=== PATIENT | female | born 1995 | race Caucasian/White ===

== ENCOUNTER 2017-06-19 15:51 | Emergency (ER) | payer MEDICAID | END 2017-06-19 17:05 | disposition left against medical advice (07) | LOC: ER 17:04 | DX: R10.2 Pelvic and perineal pain (principal); Z53.21 Procedure and treatment not carried out due to patient leaving prior to being seen by health care provider ==

== ENCOUNTER 2017-06-19 18:56 | Emergency (ER) | payer MEDICAID ==
[~2017-06-19] VITALS: Ht 152.4 cm; Wt 66.0 kg
[2017-06-19 20:20] VITALS: BP 115/76
[2017-06-19] MEDS ORDERED: CEFTRIAXONE SODIUM 250 MG/VIAL IM ONE (20:30)
[2017-06-19] MEDS ORDERED: AZITHROMYCIN 500 MG TABLET PO ONE (20:30)
== END 2017-06-19 21:59 | disposition home or self-care (01) ==
LOC: ER 21:50
DX: T74.21XA Adult sexual abuse, confirmed, initial encounter (principal); S39.848A Other specified injuries of external genitals, initial encounter; R10.2 Pelvic and perineal pain; Y07.499 Other family member, perpetrator of maltreatment and neglect; Y93.84 Activity, sleeping; Y92.9 Unspecified place or not applicable; F17.210 Nicotine dependence, cigarettes, uncomplicated
CPT/HCPCS: 99283

== ENCOUNTER 2018-05-22 20:03 | Emergency (ER) | payer MEDICAID | END 2018-05-22 21:23 | disposition left against medical advice (07) | LOC: ER 20:03 | DX: R68.89 Other general symptoms and signs (principal); Z53.21 Procedure and treatment not carried out due to patient leaving prior to being seen by health care provider ==

== ENCOUNTER 2018-09-29 15:24 | Emergency (ER) | payer MEDICAID ==
[~2018-09-29] VITALS: Ht 152.4 cm; Wt 70.0 kg
[2018-09-29] MEDS ORDERED: SODIUM CHLORIDE 0.9% 1,000 ML IV ONE (17:27)
[2018-09-29] MEDS ORDERED: ONDANSETRON HCL 4MG/2ML INJ IV ONE (17:30)
[2018-09-29 18:09] LABS: BASOPHILS % 0.7 % (0.0-2.0); HEMATOCRIT. 34.9 % (36.0-48.0); LYMPHOCYTES % 31.9 % (20.0-50.0); MEAN CORPUSCULAR HEMOGLOBIN 32.5 pg (28.0-32.0); MEAN CORPUSCULAR VOLUME 94.6 fL (81.0-99.0); MEAN PLATELET VOLUME 7.4 fl (7.4-10.4); NEUTROPHILS % 57.4 % (40.0-76.0); PLATELET 284 x1000/uL (130-400); RED BLOOD CELL COUNT 3.69 mill/uL (4.2-5.4); RED CELL DISTRIBUTION WIDTH 12.9 % (11.6-14.6)
[2018-09-29 18:13] LABS: CHLORIDE 109 mEq/L (98-107)
[2018-09-29 18:24] LABS: B-HCG QUANTITATIVE < 1 mIU/mL (<3)
[2018-09-29 20:32] LABS: CLARITY URINE CLOUDY (CLEAR); COLOR URINE ORANGE (YELLOW); KETONES URINE NEGATIVE (NEGATIVE); LEUKOCYTE ESTERASE URINE TRACE (NEGATIVE); NITRITE URINE POSITIVE (NEGATIVE); OCCULT BLOOD URINE 3+ (NEGATIVE); PROTEIN URINE 1+ (NEGATIVE); SPECIFIC GRAVITY URINE 1.025 (1.005-1.030)
[2018-09-29 20:50] VITALS: BP 105/57
== END 2018-09-29 20:54 | disposition home or self-care (01) ==
LOC: ER 15:24
DX: R11.0 Nausea (principal); N93.9 Abnormal uterine and vaginal bleeding, unspecified; R10.9 Unspecified abdominal pain; R53.1 Weakness
CPT/HCPCS: 36415; 76856; 80053; 81003; 84702; 85025; 86850; 86900; 86901; 96374; 99283; J2405; J7030

== ENCOUNTER 2020-11-04 14:41 | Emergency (ER) | payer MEDICAID ==
[~2020-11-04] VITALS: Ht 152.4 cm; Wt 73.0 kg
[2020-11-04 15:09] VITALS: BP 111/57
[2020-11-04 17:49] LABS: CLARITY URINE CLOUDY (CLEAR); COLOR URINE YELLOW (YELLOW); KETONES URINE NEGATIVE (NEGATIVE); LEUKOCYTE ESTERASE URINE 2+ (NEGATIVE); NITRITE URINE POSITIVE (NEGATIVE); OCCULT BLOOD URINE 1+ (NEGATIVE); PROTEIN URINE TRACE (NEGATIVE); SPECIFIC GRAVITY URINE 1.019 (1.005-1.030)
== END 2020-11-04 18:34 | disposition left against medical advice (07) ==
LOC: ER 14:41
DX: N30.00 Acute cystitis without hematuria (principal); B96.20 Unspecified Escherichia coli [E. coli] as the cause of diseases classified elsewhere; R00.0 Tachycardia, unspecified
CPT/HCPCS: 81003; 81025; 87077; 87186; 99283

== ENCOUNTER 2023-01-07 20:41 | Emergency (ER) | payer MEDICAID ==
[~2023-01-07] VITALS: Ht 157.5 cm; Wt 73.0 kg
[2023-01-07 20:49] VITALS: O2SAT 100
[2023-01-07] MEDS ORDERED: ACETAMINOPHEN 325MG TABLET PO STA (21:06)
[2023-01-07] MEDS ORDERED: SODIUM CHLORIDE 0.9% 1000ML BAG (SEPSIS BOLUS) IV ONE (21:15)
[2023-01-07] MEDS ORDERED: IBUPROFEN 600MG TABLET PO ONE (21:15)
[2023-01-07 21:24] VITALS: BP 140/85; PULSE 150; RESP 20; TEMP 103.1
[2023-01-07 21:25] LABS: DIFFERENTIAL COMMENT 1; HEMATOCRIT. 36.8 % (36.0-48.0); HEMOGLOBIN. 12.1 g/dL (12.0-16.0); MEAN CORPUSCULAR HEMOGLOBIN 28.5 pg (28.0-32.0); MEAN CORPUSCULAR VOLUME 86.4 fL (81.0-99.0); MEAN PLATELET VOLUME 6.6 fl (7.4-10.4); PLATELET 365 x1000/uL (130-400); RED BLOOD CELL COUNT 4.26 mill/uL (4.2-5.4); RED CELL DISTRIBUTION WIDTH 15.6 % (11.6-14.6); WHITE BLOOD COUNT 13.5 x1000/uL (4.5-11.0)
[2023-01-07 21:32] LABS: CHLORIDE 103 mEq/L (98-107); INDEX HEMOLYSI 1 (1-3); INDEX ICTERIC 1 (1-4); INDEX LIPEMIC 1 (1-3); POTASSIUM 3.1 mEq/L (3.5-5.1); SODIUM 135 mEq/L (136-145)
[2023-01-07 21:34] LABS: PROTHROMBIN TIME 10.7 sec (9.6-11.0)
[2023-01-07 21:40] LABS: ALANINE AMINOTRANSFERASE 14 IU/L (13-61); ALBUMIN 3.3 g/dL (3.4-5.0); ASPARTATE AMINOTRANSFERASE 14 IU/L (15-37); BILIRUBIN TOTAL 0.5 mg/dL (0.1-1.0); CALCIUM 8.7 mg/dL (8.5-10.1); CARBON DIOXIDE 27 mEq/L (21-32); CREATININE 0.8 mg/dL (0.6-1.3); GLUCOSE 89 mg/dL (70-105); PROTEIN TOTAL 7.9 g/dL (6.0-8.3); UREA NITROGEN BLOOD 10 mg/dL (7-21)
[2023-01-07 21:57] LABS: PLATELET ESTIMATE NORMAL
[2023-01-07 22:00] LABS: LACTIC ACID 2.2 mmol/L (0.4-2.0)
== END 2023-01-07 23:31 | disposition home or self-care (01) ==
LOC: ER 20:41
DX: R50.9 Fever, unspecified (principal); F19.90 Other psychoactive substance use, unspecified, uncomplicated; Z98.890 Other specified postprocedural states
CPT/HCPCS: 80053; 82962; 83605; 85025; 85610; 87040; 36415; 84145; 71045; 93005; 96360; 99285; J7030; Z7610 ×2

== ENCOUNTER 2023-11-25 02:22 | Emergency (ER) | payer MEDICAID ==
[2023-11-25 02:29] VITALS: PULSE 126
== END 2023-11-25 03:00 ==
LOC: ER 02:22
DX: R42 Dizziness and giddiness (principal); Z53.21 Procedure and treatment not carried out due to patient leaving prior to being seen by health care provider

== ENCOUNTER 2024-01-03 18:48 | Emergency (ER) | payer MEDICAID ==
[~2024-01-03] VITALS: Ht 152.4 cm; Wt 55.0 kg
[2024-01-03 23:03] LABS: BASOPHILS % 0.2 % (0.0-2.0); HEMATOCRIT. 33.8 % (36.0-48.0); HEMOGLOBIN. 11.4 g/dL (12.0-16.0); LYMPHOCYTES % 9.6 % (20.0-50.0); MEAN CORPUSCULAR HEMOGLOBIN 29.7 pg (28.0-32.0); MEAN CORPUSCULAR HGB CONC 33.7 g/dL (31.0-37.0); MEAN PLATELET VOLUME 6.9 fl (7.4-10.4); MONOCYTES % 12.3 % (2.0-8.0); NEUTROPHILS % 77.9 % (40.0-76.0); PLATELET 330 x1000/uL (130-400); RED BLOOD CELL COUNT 3.84 mill/uL (4.2-5.4); RED CELL DISTRIBUTION WIDTH 14.4 % (11.6-14.6); WHITE BLOOD COUNT 16.5 x1000/uL (4.5-11.0)
[2024-01-03 23:16] LABS: CHLORIDE 102 mEq/L (98-107); POTASSIUM 3.6 mEq/L (3.5-5.1); SODIUM 134 mEq/L (136-145)
[2024-01-03 23:17] LABS: CARBON DIOXIDE 24 mEq/L (21-32)
[2024-01-03 23:22] LABS: CREATININE 0.9 mg/dL (0.6-1.0); GLUCOSE 109 mg/dL (70-105); UREA NITROGEN BLOOD 9 mg/dL (9-23)
[2024-01-03 23:39] VITALS: O2SAT 97
[2024-01-03] MEDS: ACETAMINOPHEN 325MG TABLET PO ONE (23:48)
[2024-01-04 00:02] LABS: ALANINE AMINOTRANSFERASE 27 IU/L (10-49); ALBUMIN 3.9 g/dL (3.2-4.8); ASPARTATE AMINOTRANSFERASE 41 IU/L (<34); BILIRUBIN DIRECT 0.1 mg/dL (<=3.0); BILIRUBIN TOTAL 0.2 mg/dL (0.1-1.0); PROTEIN TOTAL 6.5 g/dL (6.0-8.3)
[2024-01-04 00:13] LABS: HCG SCREEN NEGATIVE
[2024-01-04 00:55] LABS: CLARITY URINE TURBID (CLEAR); COLOR URINE YELLOW (YELLOW); GLUCOSE URINE NEGATIVE (NEGATIVE); KETONES URINE NEGATIVE (NEGATIVE); LEUKOCYTE ESTERASE URINE 1+ (NEGATIVE); NITRITE URINE POSITIVE (NEGATIVE); OCCULT BLOOD URINE 1+ (NEGATIVE); PH URINE 8.5 (4.5-8.0); PROTEIN URINE 1+ (NEGATIVE); SPECIFIC GRAVITY URINE 1.017 (1.005-1.030)
[2024-01-04] MEDS: SODIUM CHLORIDE 0.9% 1,000 ML IV ONE (01:04)
[2024-01-04] MEDS: ONDANSETRON HCL 4MG/2ML INJ IV ONE (01:05)
[2024-01-04 01:21] LABS: BACTERIA URINE 3+; SQUAMOUS EPITHELIAL CELL URINE 2+ /lpf (RARE/1+); WBC URINE TNTC /hpf (0-2)
[2024-01-04] MEDS: CEFTRIAXONE 1GM/50ML 50 ML IV ONE (01:32)
[2024-01-04] MEDS ORDERED: CEFP200T13 MT (03:11)
[2024-01-04 07:09] VITALS: BP 115/67; PULSE 98; RESP 20; TEMP 37.28076; O2SAT 98
== END 2024-01-04 07:18 | disposition home or self-care (01) ==
LOC: ER 18:48
DX: R50.9 Fever, unspecified (principal); N39.0 Urinary tract infection, site not specified; Z20.822 Contact with and (suspected) exposure to COVID-19
CPT/HCPCS: 36415; 71045; 80048; 80076; 81003; 81025; 84703; 85025; 87426; 87804; 96365; 96375; 99284; J0696; J2405; J7030

== ENCOUNTER 2024-05-01 03:35 | Emergency (ER) | payer MEDICAID ==
[~2024-05-01 03:35] MED LIST: CEFP200T13 MT
== END 2024-05-01 04:55 | disposition left against medical advice (07) ==
LOC: ER 03:35
DX: R42 Dizziness and giddiness (principal); Z53.21 Procedure and treatment not carried out due to patient leaving prior to being seen by health care provider

== ENCOUNTER 2024-09-06 11:47 | Emergency (ER) | payer MEDICAID ==
[~2024-09-06] VITALS: Ht 152.4 cm; Wt 77.0 kg
[2024-09-06 11:49] VITALS: BP 124/76; PULSE 90; RESP 16; TEMP 36.4; O2SAT 99
[2024-09-06] MEDS ORDERED: IBUP-2029 MT (14:25)
== END 2024-09-06 15:10 | disposition home or self-care (01) ==
LOC: ER 11:47
DX: S02.2XXA Fracture of nasal bones, initial encounter for closed fracture (principal); S02.40DA Maxillary fracture, left side, initial encounter for closed fracture; Y04.0XXA Assault by unarmed brawl or fight, initial encounter; Y93.89 Activity, other specified; Y92.89 Other specified places as the place of occurrence of the external cause; Y99.8 Other external cause status
CPT/HCPCS: 70486; 99284